=== PATIENT | male | born 1950 | race Caucasian/White ===

== ENCOUNTER 2018-04-29 09:53 | Day surgery (SDC) | payer OTHER ==
[2018-04-29] MEDS ORDERED: NS 0.9% VIAL 10 ML ONE (10:10)
[2018-04-29] MEDS ORDERED: EPINEPHRINE/PF 1 MG/ML AMP ONE (10:10)
[2018-04-29] MEDS ORDERED: BALANCED SALT IRRIG PLAIN 500 ML BTL IRR ONE (10:11)
[2018-04-29] MEDS ORDERED: DUOVISC 1 KIT OPTH ONE (10:11)
[2018-04-29] MEDS ORDERED: MOXIFLOXACIN HCL 10 DROPS/ML **OR USE OPTH ONE (10:11)
[2018-04-29] MEDS ORDERED: BUPIVACAINE 0.25% PF 10 ML VIAL ONE (10:41)
[2018-04-29] MEDS ORDERED: LIDOCAINE 2% INJ, MPF 2 ML 2 ML ONE (10:41)
[2018-04-29] MEDS ORDERED: CYCLOPENTOLATE 1% OPTH 2 ML ONE (10:41)
[2018-04-29] MEDS ORDERED: TETRACAINE HCL 0.5% 2ML OPTH ONE (10:41)
[2018-04-29] MEDS ORDERED: NA CHLORIDE 0.9% 500 ML ONE (10:42)
[2018-04-29] MEDS ORDERED: PHENYLEPHRINE 10% OPTH 5ML ONE (10:42)
[2018-04-29] MEDS ORDERED: CYCLOPENTOLATE 1% OPTH 2 ML OPTH ONE ×2 (10:50→10:57)
[2018-04-29] MEDS ORDERED: PHENYLEPHRINE 10% OPTH 5ML OPTH ONE ×2 (10:50→10:57)
[2018-04-29] MEDS ORDERED: LIDOCAINE 1% MPF 2 ML AMPULE ONE (11:45)
[2018-04-29] MEDS ORDERED: PROPOFOL 200 MG/20 ML VIAL IV ONE (11:45)
--- NOTE | 2018-04-29 12:48 | P.BOP ---
Preoperative diagnosis: Nuclear sclerotic cataract and narrow angle OD Postoperative diagnosis: Same Primary procedure: Phacoemulsification with IOL OD Estimated blood loss: None Anesthesia: Local (Subtenon's infusion with anesthesia for cataract surgery) Complications: None Implants: ZCB00 +22.0 Transferred to: Other (Day surgery) Condition: Good
--- NOTE | 2018-04-30 00:04 | OP ---
Date of Procedure: 04/29/2018 Surgeon: Chioma Dockery MD Anesthesiologist: 1. Francy Fletcher CRNA. 2. Trevin Richey CRNA. 3. Saul Hernandez M.D. Preoperative Diagnosis: Nuclear sclerotic cataract, angle closure, and narrow angles, OD (right eye) . Operation Performed: Phacoemulsification with intraocular lens implant, OD (right eye). Anesthesia: Per cataract surgery. Complications: None. Description Of Procedure: In day surgery, the patient was prepped with Betadine and draped. A conju nctival incision was made in the inferior nasal quadrant with Lorraine scissors. A sub-Tenon block c onsisting of a 1:1 mixture of 2% Xylocaine and 0.25% bupivacaine was placed through the conjunctival incision with a blunt cannula. A Honan balloon was placed over the eye and the patient was transferr ed to the operating room. In the operating room the patient was prepped and draped in the usual sterile fashion for ophthalmic surgery. A lid speculum was placed in the right eye. Two paracentesis sites were made superiorly an d inferiorly in the limbal cornea. Viscoat was placed in the anterior chamber and a crescent blade w as used to make a corneal groove and tunnel, and a keratome was used to enter the anterior chamber. Provisc was placed in the anterior chamber and a 360 degree capsulotomy was performed with a cystitom e. The lens was hydrodissected with BSS and rotated freely. The lens was removed with a stop and ch op technique. 6.92 phaco CDE was used to remove the lens. Residual cortex was removed with the irri gation and aspiration. Provisc was placed in the capsular bag. A ZCB00 +22.[address] d in the capsular bag without complications. Irrigation and aspiration was used to remove residual v iscoelastic. The paracentesis sites were hydrated with BSS. The wound and paracentesis sites were i nspected and found to be watertight. Vigamox 0.07 cc was placed intracamerally at the end of the pro cedure. The eye was irrigated with balanced salt solution. The eye was patched with a soft cotton p atch and Lawrence metal shield. The patient was returned to day surgery in good condition. Comments: The incision was created superiorly due to patient's kyphosis. Discharge Instructions: Mr. Mendoza is discharged to home in good condition and is to follow up [facility] Dr. Dockery in the morning. LESLIE/DAYLIN Voice ID: [id number] Report ID: [id number]
== END 2018-04-29 13:20 | disposition home or self-care (01) ==
LOC: OR 09:53
PROVIDERS: ATTEND Ophthalmology Retina Specialist
PROC: 08RJ3JZ Replacement of Right Lens with Synthetic Substitute, Percutaneous Approach (ICD-10-PCS; principal; 2018-04-29 11:05)
DX: H25.11 Age-related nuclear cataract, right eye (principal); H04.123 Dry eye syndrome of bilateral lacrimal glands; H53.2 Diplopia; E11.319 Type 2 diabetes mellitus with unspecified diabetic retinopathy without macular edema; I10 Essential (primary) hypertension; E78.5 Hyperlipidemia, unspecified; G47.33 Obstructive sleep apnea (adult) (pediatric); E66.9 Obesity, unspecified; Z79.01 Long term (current) use of anticoagulants; Z86.711 Personal history of pulmonary embolism; Z86.718 Personal history of other venous thrombosis and embolism
CPT/HCPCS: 66984; 82962; J0171; J2001; J3490

== ENCOUNTER 2018-07-15 10:13 | Day surgery (SDC) | payer OTHER ==
[2018-07-15] MEDS ORDERED: NS 0.9% VIAL 10 ML ONE (11:03)
[2018-07-15] MEDS ORDERED: BALANCED SALT IRRIG PLAIN 500 ML BTL IRR ONE (11:04)
[2018-07-15] MEDS ORDERED: MOXIFLOXACIN HCL 10 DROPS/ML **OR USE OPTH ONE (11:04)
[2018-07-15] MEDS ORDERED: DUOVISC 1 KIT OPTH ONE (11:04)
[2018-07-15 11:18] LABS: Protime INR 1.2
[2018-07-15] MEDS ORDERED: PHENYLEPHRINE 10% OPTH 5ML OPTH ONE ×2 (11:26→11:34)
[2018-07-15] MEDS ORDERED: CYCLOPENTOLATE 1% OPTH 2 ML OPTH ONE ×2 (11:26→11:34)
[2018-07-15] MEDS ORDERED: Ringers Lactate 1,000 ML IV ONE (12:00)
[2018-07-15] MEDS ORDERED: PHENYLEPHRINE 10% OPTH 5ML ONE (12:01)
[2018-07-15] MEDS ORDERED: CYCLOPENTOLATE 1% OPTH 2 ML ONE (12:01)
[2018-07-15] MEDS: TETRACAINE HCL 0.5% 2ML OPTH ONE ×2 (12:02→12:30)
[2018-07-15] MEDS: BUPIVACAINE 0.25% PF 10 ML VIAL ONE ×2 (12:03→12:31)
[2018-07-15] MEDS: LIDOCAINE 2% MPF 5 ML VIAL ONE ×2 (12:04→12:31)
[2018-07-15] MEDS ORDERED: LIDOCAINE 2% MPF 5 ML VIAL ONE (12:09)
[2018-07-15] MEDS ORDERED: PROPOFOL 200 MG/20 ML VIAL IV ONE (12:09)
[2018-07-15] MEDS ORDERED: EPINEPHRINE/PF 1 MG/ML AMP ONE (12:31)
--- NOTE | 2018-07-15 13:23 | P.BOP ---
Preoperative diagnosis: Nuclear sclerotic cataract and narrow angles OS Postoperative diagnosis: Same Primary procedure: Phacoemulsification with IOL OS Estimated blood loss: None Anesthesia: Local (Subtenon's infusion with anesthesia for cataract surgery) Complications: None Implants: ZCB00 +23.0 Transferred to: Other (Day surgery) Condition: Good
[2018-07-15] MEDS ORDERED: NA CHLORIDE 0.9% 500 ML ONE (14:47)
--- NOTE | 2018-07-16 00:28 | OP ---
Surgeon: Chioma Dockery MD Anesthesiologist: Rosalba Narvaez CRNA, and Dean Luna M.D. Preoperative Diagnosis: Nuclear sclerotic cataract, OS and narrow angle, OS. Operation Performed: Phacoemulsification with intraocular lens implant, OS. Anesthesia: Per cataract surgery. Complications: None. Description Of Procedure: In day surgery, the patient was prepped with Betadine and draped. A conjunctival incision was made in the inferior nasal quadrant with Lorraine scissors. A sub-Tenon block consisting of a 1:1 mixture of 2% Xylocaine and 0.25% bupivacaine was placed through the conjunctival incision with a blunt cannula. A Honan balloon was placed over the eye and the patient was transferred to the operating room. In the operating room the patient was prepped and draped in the usual sterile fashion for ophthalmic surgery. A lid speculum was placed in the OS. Two paracentesis sites were made superiorly and inferiorly in the limbal cornea. Viscoat was placed in the anterior chamber and a crescent blade was used to make a corneal groove and tunnel, and a keratome was used to enter the anterior chamber. Provisc was placed in the anterior chamber and a 360 degree capsulotomy was performed with a cystitome. The lens was hydrodissected with BSS and rotated freely. The lens was removed with a stop and chop technique. 5.01 phaco CDE was used to remove the lens. Residual cortex was removed with the irrigation and aspiration. Provisc was placed in the capsular bag. A ZCB00 +23.0 lens was placed in the capsular bag without complications. Irrigation and aspiration were used to remove residual viscoelastic. The paracentesis sites were hydrated with BSS. The wound and paracentesis sites were inspected and found to be watertight. Vigamox 0.07 cc was placed intracamerally at the end of the procedure. The eye was irrigated with balanced salt solution. The eye was patched with a soft cotton patch and Lawrence metal shield. The patient was returned to day surgery in good condition. Comments: 1:5000 epinephrine was placed in the anterior chamber during phacoemulsification. The incision was created superiorly instead of temporally. Discharge Instructions: Mr. Mendoza is discharged to home with good condition and is to follow up with Dr. Dockery in the morning. LESLIE/DAYLIN Voice ID: [id number] Report ID: [id number]
== END 2018-07-15 13:54 | disposition home or self-care (01) ==
LOC: OR 10:13
PROVIDERS: ATTEND Ophthalmology Retina Specialist
PROC: 08RK3JZ Replacement of Left Lens with Synthetic Substitute, Percutaneous Approach (ICD-10-PCS; principal; 2018-07-15 11:15)
DX: H25.12 Age-related nuclear cataract, left eye (principal); H04.123 Dry eye syndrome of bilateral lacrimal glands; E11.9 Type 2 diabetes mellitus without complications; I10 Essential (primary) hypertension; E66.9 Obesity, unspecified; E78.5 Hyperlipidemia, unspecified; Z86.711 Personal history of pulmonary embolism; Z79.01 Long term (current) use of anticoagulants; Z82.49 Family history of ischemic heart disease and other diseases of the circulatory system
CPT/HCPCS: 36415; 66984; 82962; 85610; J0171; J2704